=== PATIENT | female | born 1955 | race Caucasian/White ===

== ENCOUNTER → 2018-08-27 | Outpatient (CLI) | payer MEDICARE, OTHER ==
--- NOTE | 2018-08-31 15:08 | MAM ---
EXAM DESCRIPTION: 3D Screening BILATERAL : Digital Mammography. CLINICAL HISTORY: 63 years Female ANNUAL SCREENING . No personal or family history of breast cancer. No complaints. Childbirth. Postmenopausal 15 years. Currently on HRT.. Lifetime risk of developing breast cancer (Tyrer-Cuzick model)(%): 8.6. COMPARISON: Baseline study at this facility. TECHNIQUE: Bilateral CC and MLO projection full-field images, digital tomosynthesis mammographic technique. Bilateral digital 2-D full-field MLO images. CAD not available for tomosynthesis or 2-D images. FINDINGS: The breast parenchymal density pattern is: Scattered areas of fibroglandular density. No skin thickening or nipple retraction. Left axillary Lymph node. Prominent left axillary skin fold. Focal asymmetry in the middle third of the upper outer quadrant of the right breast at the 11:30 clock position approximately 6 cm from the nipple. Slightly denser than the surrounding fibroglandular tissues. Not associated with microcalcifications. Region of focal asymmetry denser slightly denser than surrounding fibroglandular tissues with architectural distortion in the middle third of the left breast at the 2:00 position approximately 7 cm from the nipple. Not associated with microcalcifications. IMPRESSION: BI-RADS CATEGORY: 0 - INCOMPLETE- Need additional imaging evaluation. FOLLOW-UP: Recall for additional imaging: Bilateral targeted breast ultrasound the regions of interest. Optional diagnostic tomosynthesis bilaterally to follow, depending on ultrasound findings.. Written communication concerning the IMPRESSION and Follow-up, will be mailed to the patient and referring health care provider. Electronically signed by: Iávn Simon MD 08/31/2018 3:05 PM CDT
== END ==
LOC: MAMMO 11:30
PROVIDERS: ATTEND Nurse Practitioner Family
DX: Z12.31 Encounter for screening mammogram for malignant neoplasm of breast (principal)

== ENCOUNTER → 2018-09-15 | Outpatient (CLI) | payer MEDICARE, OTHER ==
--- NOTE | 2018-09-16 12:07 | US ---
EXAM DESCRIPTION: Breast,Bilateral: Ultrasound CLINICAL HISTORY: 63 yearsFemaleABN MAMMO COMPARISON: Screening bilateral digital breast tomosynthesis 08/27/2018. TECHNIQUE: Transcutaneous scanning of the bilateral breasts utilizing ba-scale and Doppler modes. Scanning performed by the gridcap machine operator with Dr. Simon observing. FINDINGS: Scanning the middle and posterior third of the superior breast just above the posterior nipple line bilaterally. Heterogeneous mixture of fibroglandular and fatty echotexture. Scanning right breast 9:00 to 12:00 position in the region of interest. No distinct cyst or dominant solid mass. Scanning of the left breast 1:00 to 3:00 sectors 3 cm from the nipple. Circumscribed hypoechoic mass with echogenic center and echogenic cleft. Dimensions 4.6 x 3.0 x 2.1 mm and not vascular. Mixed posterior acoustic signature. Wider than tall orientation. No dominant solid mass or distinct cyst. Bilaterally no parenchymal edema or large calcifications. No overlying skin changes. IMPRESSION: Benign exam. BIRAD CATEGORY: 2 BENIGN FINDINGS. RECOMMENDATIONS: FOLLOW UP: Return to routine digital bilateral mammographic screening, one year interval from August 2018. Written communication explaining the IMPRESSION and follow-up, will be mailed to the patient and referring health care provider. The FINDINGS and the FOLLOW-UP plan were reviewed in person with the patient after the examination. According to the [employer], yearly mammograms are recommended starting at age 40 and continuing as long as a woman is in good health. Any breast change noted on a breast self-exam should be reported promptly to the patient's healthcare provider. Breast MRI is recommended for women with an approximately 20-25% or greater lifetime risk of breast cancer, including women with a strong family history of breast or ovarian cancer and women who have been treated for Hodgkin's disease. A negative mammographic report should not delay tissue diagnosis in patients with significant clinical history or physical findings. Extremely dense breast tissue limits the sensitivity of digital mammography. Electronically signed by: Iván Simon MD 09/16/2018 12:05 PM CDT
== END ==
LOC: US 14:30
PROVIDERS: ATTEND Nurse Practitioner Family
DX: R92.2 Inconclusive mammogram (principal)

== ENCOUNTER → 2020-06-15 | Outpatient (CLI) | payer MEDICARE, OTHER ==
--- NOTE | 2020-06-18 09:33 | US ---
EXAM DESCRIPTION: Carotid Duplex: ULTRASOUND. CLINICAL HISTORY: 65 years Female OCCLUSION AND STENOSIS OF LEFT CAROTID ARTERY COMPARISON: None. TECHNIQUE: Transcutaneous scanning utilizing ba-scale and Doppler modes to evaluate the bilateral carotid systems and vertebral arteries. Percentage of diameter of stenosis or no stenosis recorded will be based upon NASCET criteria. FINDINGS: Peak systolic/end diastolic velocities (CM-Sec) CCA Right 93/18 Left 89/30. ICA Right proximal 56/16, distal 101/35. Left proximal 69/18, mid 69/23. Vertebral Right 42/8 Left 37/6. ECA (PS Only) Right 73 left 80. ICA/CCA peak systolic velocity ratio: Right 1.1 Left 0.8 ICA/CCA end diastolic velocity ratio: Right 1.9 Left 0.6 Vertebral arteries: antegrade flow. Comments: Bilateral atherosclerotic calcified hard plaque. Minimal spectral broadening in the ICAs bilaterally. 25 Percent diameter and area stenosis proximal left ICA. IMPRESSION: 1. Doppler evaluation of the bilateral carotid systems and vertebral arteries shows no hemodynamically significant stenoses (less than 70%). 2. Moderate amount of plaque in the carotid arteries bilaterally. Bilateral vertebral arteries showed antegrade-cephalad flow. Electronically signed by: Iván Simon MD 06/18/2020 9:31 AM [facility]
== END ==
LOC: US 10:59
PROVIDERS: ATTEND Nurse Practitioner Family
DX: I65.23 Occlusion and stenosis of bilateral carotid arteries (principal)